=== PATIENT | male | born 1955 | race Caucasian/White ===

== ENCOUNTER → 2019-09-27 | Outpatient (CLI) | payer OTHER ==
[~2019-09-27] VITALS: Ht 180.3 cm; Wt 93.0 kg
[~2019-09-27] MED LIST: AMLODIPINE BESY10 MG PO; ASA81BEC PO; BRILINTA90 MG PO; C-1000 WITH R1000 MG PO; CALCIUM MAGNES1 EAC2 PO; LIPITOR10 MG PO; LOPRESSOR50 MG PO; NEXIUM 40 MG CA40 M1 PO; NITROSTAT0.4 M1 SUBLING; OMEPRAZOLE 20 M20 M1 PO; VITAMIN D3250 MC2 PO; ZANAFLEX4 M1 PO
[2019-09-27 14:16] VITALS: BP 143/85
--- NOTE | 2019-09-27 14:42 | NUR ---
Pain Clinic Assessment: 1. History of Osteoarthritis: BACK History of Rheumatoid Arthritis: Not Applicable 2. Height: 5 ft. 11 in. 180.3 cm. Weight: 205.0 lb. oz. 92.988 kg. Patient's BMI: 28.6 3. Vital Signs: BP: 143/85 Pulse: 63 Resp: 20 Temp: 02 Sat: 98 ECG Mon: 4. Pain Intensity: 8 5. Fall Risk: Dizziness: N Needs help standing or walking: N Fallen in the last 3 months: N Fall risk comments: 6. Patient on Blood Thinner: BRILENTA 7. History of Hypertension: Y 8. Opioid Therapy greater than 6 weeks: N Opiate Contract Signed: 9. Risk Assessment Tool Provided: LOW RISK 0/3 10. Functional Assessment Tool: 36/ 11. Recreational Drug Use: Never Drug Type: Tobacco Use: Current Every Day Smoker Tobacco Type: Cigarettes Amount or Packs/day: 1 PACK DAY How Many Years: 55 Alcohol Use: Past use Frequency: Quant:
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
== END ==
LOC: PAIN 06:50
PROVIDERS: ATTEND Anesthesiology Pain Medicine
DX: M54.17 Radiculopathy, lumbosacral region (principal); M48.07 Spinal stenosis, lumbosacral region; I25.2 Old myocardial infarction; E78.00 Pure hypercholesterolemia, unspecified; I25.10 Atherosclerotic heart disease of native coronary artery without angina pectoris; M19.90 Unspecified osteoarthritis, unspecified site; K92.9 Disease of digestive system, unspecified; Z88.5 Allergy status to narcotic agent; Z79.899 Other long term (current) drug therapy

== ENCOUNTER → 2019-10-04 | Outpatient (CLI) | payer OTHER ==
[~2019-10-04] VITALS: Ht 180.3 cm; Wt 97.5 kg
[2019-10-04 12:48] VITALS: BP 144/75
--- NOTE | 2019-10-04 12:52 | NUR ---
Pain Clinic Assessment: 1. History of Osteoarthritis: BACK History of Rheumatoid Arthritis: Not Applicable 2. Height: 5 ft. 11 in. 180.3 cm. Weight: 215.0 lb. oz. 97.524 kg. Patient's BMI: 30.0 3. Vital Signs: BP: 144/75 Pulse: 64 Resp: 18 Temp: 02 Sat: 99 ECG Mon: 4. Pain Intensity: 7-8 5. Fall Risk: Dizziness: N Needs help standing or walking: N Fallen in the last 3 months: N Fall risk comments: 6. Patient on Blood Thinner: BRILENTA 7. History of Hypertension: Y 8. Opioid Therapy greater than 6 weeks: N Opiate Contract Signed: 9. Risk Assessment Tool Provided: LOW RISK 0/3 10. Functional Assessment Tool: 36/ 11. Recreational Drug Use: Never Drug Type: Tobacco Use: Current Every Day Smoker Tobacco Type: Amount or Packs/day: How Many Years: Alcohol Use: Past use Frequency: Quant:
--- NOTE | 2019-10-16 08:09 | HPC ---
[facility] [place] [address] PAIN MANAGEMENT CONSULTATION Name: JAMIL AGUILERA Room #: REG PILO WillinghamSisLaure.#: [id number] Admission: 10/04/19 Attend Phys: Torie Lorenzo MD Discharge: Date of : 53 Report #: [id number] THIS REPORT FOR: cc: John Seals MD,Torie Armstrong MD, MD ~ CC: Torie Seals DATE OF SERVICE: 10/04/2019 PRIMARY CARE PHYSICIAN: John Seals MD CHIEF COMPLAINT: Low back pain that radiates down into the legs with prolonged standing. HISTORY: The patient is a 64-year-old gentleman who has been referred to the pain clinic because of low back pain. He has experienced low weakness in his legs. Pain becomes more problematic when he stands. Notes that the pain continues to build to a crescendo in his lower back. He then notes an improvement when he sits down. He is limited in the ability to walk and engage in activities because of this pain. Pain, generally subsides in about 5 minutes after resting. He has not had back surgery. He had an MRI, which indicates some narrowing in the lower portion of his back. He has returned today for an epidural injection. He has stopped use of the Brilinta. He would like to proceed with an injection. ALLERGIES: CODEINE. CURRENT MEDICATIONS: Brilinta 90 mg b.i.d. has been held. Omeprazole 20 mg, nitroglycerin 0.4 mg, Nexium 40 mg, vitamin D3 250 mg, the patient takes 1000 mg daily, calcium, magnesium tablets, Lipitor 10 mg, aspirin 81 mg, ascorbic acid 1000 mg, amlodipine 10 mg. PAIN CLINIC ASSESSMENT AND PQRS: 1. The patient has a history of osteoarthritis in his back. He is not being treated for rheumatoid arthritis. 2. Height 5 feet 11 inches, weight 215 pounds, BMI is 30. 3. Vital signs: Blood pressure 144/75, pulse 64, respiratory rate 18, room air saturation 99%. 4. Pain intensity . 5. Fall risk. The patient has not fallen in the last 3 months. 6. Blood thinner. The patient is on a blood thinning medication Brilinta. 7. Hypertension. The patient is being treated for hypertension. 8. Opioids greater than 6 weeks. The patient is not on an opioid regimen. 9. Risk assessment tool, low for opioid use. [facility] [address] [place] [address] PAIN MANAGEMENT CONSULTATION Name: JAMIL AGUILERA [id number] Admission: 10/04/19 Attend Phys: Torie Lorenzo MD Discharge: Date of : 53 Report #: [id number] 10. Functional assessment tool . 11. Recreational drug use. The patient denies. 12. Tobacco: The patient smokes daily. 13. Alcohol. The patient denies frequent use of alcoholic beverages. PHYSICAL EXAMINATION: GENERAL: The patient is a well-developed, well-nourished white male. He is alert and oriented x 3. His affect is appropriate. Speech is fluent. HEENT: Normocephalic, atraumatic. Extraocular eye muscles intact. Sclerae nonicteric. Mucous membranes are moist. NECK: Without adenopathy or JVD. EXTREMITIES: Upper extremity muscle strength, the patient does have some weakness as a result of his stroke on the left side. He walks with an antalgic gait. Has some spasticity in the upper as well as the lower extremity. The patient does have some instability while trying to balance. The patient has some pain and discomfort in his right shoulder. Has pain that radiates down into his right arm. HEART: Regular rate. ABDOMEN: Nontender. MUSCULOSKELETAL: The patient has some pain and discomfort in the mid back in the lumbar area in the L4-L5 and L5-S1 areas with complaint of burning sensation. The patient also complains of some numbness in his right shoulder. He has pain that radiates down his neck into his arm and forearm. The patient also has some discomfort that radiates down into the L5-S1 dermatomal distribution on the left and right, and involves the right leg also. IMPRESSION: 1. Lumbar radiculopathy at L5-S1 dermatomal distribution with spinal stenosis. 2. Cerebrovascular accident. 3. Heart attack. 4. Hypercholesterolemia. 5. Coronary artery disease with stent placement. 6. Stomach problems. 7. Joint disease/arthritis. 8. Cancer. RECOMMENDATIONS: We discussed treatment options with the patient. Risks and benefits of an epidural steroid injection were discussed. Possible complications of the procedure, which could include but are not limited to infection, worsening pain, no improvement in pain were discussed. We also discussed the indications, which involve the use of steroids with COVID-19. The patient has returned to the pain clinic. He has stopped taking the Brilinta. He would like to proceed with an injection. PROCEDURE NOTE: The patient was taken to the procedure area. He was then assisted in getting on the examination table. The patient was placed in the [facility] [address] [place] [address] PAIN MANAGEMENT CONSULTATION Name: JAMIL AGUILERA Room #: REG PILO Pereyra#: [id number] Admission: 10/04/19 Attend Phys: Torie Lorenzo MD Discharge: Date of : 53 Report #: [id number] prone position. Fluoroscopy was used to identify the L5-S1 dermatomal distribution. A pillow was placed under the abdomen to bolster and improve positioning. Fluoroscopy using anterior, posterior as well as lateral viewing were implemented. The patient's back had been sterilely prepped with a Betadine solution and allowed to dry. A 0.25% bupivacaine was infiltrated at this level with a 25-gauge needle. The patient's back had been anesthetized. A 17-gauge Tuohy was then advanced into the area of the epidural space. There was no CSF, heme or paresthesia. A total of 80 mg Depo-Medrol, 40 mg triamcinolone and 2 mL of 0.25% bupivacaine was injected. The patient tolerated the procedure well. There were no complications. He remained in the pain clinic for an appropriate amount of time. He will follow up in the future as needed. Pain decreased from 7-8 to 0 at the time of discharge. His legs were stable. There were no problems with his balance at the time of discharge. He will follow up in the future as needed. We would like to thank you for letting us participate in his care. We hope he continues to improve. <ELECTRONICALLY SIGNED> By: Torie Lorenzo MD 10/16/19 [id number] Torie Lorenzo MD /CHELLE
== END | disposition home or self-care (01) ==
LOC: PAIN 06:54
PROVIDERS: ATTEND Anesthesiology Pain Medicine
DX: M54.16 Radiculopathy, lumbar region (principal); G89.29 Other chronic pain; F17.210 Nicotine dependence, cigarettes, uncomplicated; Z98.890 Other specified postprocedural states; Z79.899 Other long term (current) drug therapy

== ENCOUNTER → 2021-01-22 | Outpatient (CLI) | payer OTHER | LOC: MRI 01-14 08:20 | PROVIDERS: ATTEND Family Medicine | DX: M47.816 Spondylosis without myelopathy or radiculopathy, lumbar region (principal); M48.061 Spinal stenosis, lumbar region without neurogenic claudication; M25.551 Pain in right hip; J45.998 Other asthma ==